=== PATIENT | female | born 1990 | race Caucasian/White ===

== ENCOUNTER 2018-06-19 19:04 | Emergency (ER) | payer OTHER ==
[~2018-06-19] VITALS: Ht 162.6 cm; Wt 45.4 kg
[2018-06-19 19:14] VITALS: BP_SYST 148
[2018-06-19] MEDS: NACL 0.9% 1,000 ML IV ONE ×2 (20:04→21:20)
[2018-06-19 20:24] LABS: COLOR,URINE YELLOW (YELLOW)
[2018-06-19 20:25] LABS: BILIRUBIN,URINE NEGATIVE (NEGATIVE); BLOOD, URINE NEGATIVE (NEGATIVE); CLARITY/URINE SLIGHTLY CLOUDY (CLEAR); GLUCOSE,URINE NEGATIVE (NEGATIVE); KETONES,URINE NEGATIVE (NEGATIVE); LEUKOCYTE ESTERASE ,URINE NEGATIVE (NEGATIVE); NITRITE, URINE NEGATIVE (NEGATIVE); PROTEIN URINE NEGATIVE (NEGATIVE); UROBILINOGEN,URINE 0.2 (0.2-1.0)
[2018-06-19 20:30] LABS: RBC,URINE 0-3 /HPF (0-3)
[2018-06-19 20:31] LABS: BACTERIA,URINE MODERATE /HPF (None Seen); MUCUS,URINE None Seen /LPF (None Seen); WBC,URINE 0-3 /HPF (0-3); YEAST,URINE None Seen /HPF (None Seen)
[2018-06-19 20:36] LABS: BARBITURATE, URINE NEGATIVE (NEG <=200); BENZODIAZEPINE, URINE NEGATIVE (NEG <=150); CANNABINOID, URINE NEGATIVE (NEG <=50); COCAINE, URINE NEGATIVE (NEG <=150); METHAMPHETAMINES SCREEN,URINE NEGATIVE (NEG <=500); OPIATE, URINE POSITIVE (NEG <=100); PHENCYCLIDINE SCREEN,URINE NEGATIVE (NEG <=25); UR TRICYCLIC ANTIDEPRESSANTS NEGATIVE (NEG <=300); URINE AMPHETAMINE NEGATIVE (NEG <=500); URINE METHADONE NEGATIVE (NEG <=200); URINE OXYCODONE SCREEN NEGATIVE (NEG <=100); URINE PROPOXYPHENE SCREEN NEGATIVE (NEG <=300)
[2018-06-19 20:46] LABS: POTASSIUM 3.1 mmol/L (3.5-5.1)
[2018-06-19 20:47] LABS: ALBUMIN 4.4 g/dL (3.4-4.8); CALCIUM 9.4 mg/dL (8.4-11.0); CREATININE 0.7 mg/dL (0.55-1.30); TOTAL BILIRUBIN 1.4 mg/dL (0.0-1.0)
[2018-06-19 20:53] LABS: HEMATOCRIT 39.3 % (36-48); HEMOGLOBIN 13.1 g/dL (12.0-16.0); MEAN CORPUSCULAR HEMOGLOBIN 29 pg (27-31); MEAN CORPUSCULAR HGB CONC 33 % (32-36); MEAN CORPUSCULAR VOLUME 88 fL (79.0-98.0); PLATELET COUNT (AUTO) 204 K/uL (130-430); RED BLOOD CELL COUNT(AUTO) 4.46 MIL/uL (4.2-6.2); RED CELL DISTRIBUTION WIDTH 11.3 % (9.0-15.0); WHITE BLOOD COUNT (AUTO) 8.6 K/uL (4.8-10.8)
[2018-06-19 20:54] LABS: BASOPHILS % (AUTO) 0.3 % (0.0-2.0); EOSINOPHILS % (AUTO) 0.4 % (0.0-4.0); LYMPHOCYTES # (AUTO) 1.2 K/uL (1.0-5.5); MONOCYTES # (AUTO) 0.4 K/uL (0.0-1.0); MONOCYTES % (AUTO) 4.9 % (1.7-9.3); NEUTROPHILS % (AUTO) 80.4 % (40.0-70.0)
[2018-06-19 22:00] VITALS: BP_SYST 113
== END 2018-06-19 22:25 | disposition home or self-care (01) ==
LOC: SED 19:04
DX: R00.2 Palpitations (principal); E86.0 Dehydration; R03.0 Elevated blood-pressure reading, without diagnosis of hypertension
CPT/HCPCS: 36415; 71045; 80053; 80307; 81000; 84443; 85025; 87086; 93005; 96360; 99284; J7030

== ENCOUNTER 2019-06-10 08:51 | Emergency (ER) | payer OTHER ==
[~2019-06-10] VITALS: Ht 162.6 cm; Wt 47.6 kg
[2019-06-10 08:56] VITALS: BP_SYST 128
--- NOTE | 2019-06-10 09:00 | NUR ---
Patient to ER bed 05 to gown for evaluation. Side rails up.
--- NOTE | 2019-06-10 09:02 | NUR ---
Pt brought by family , A&Ox4, pt presents to ER with anxiety, pt taking fluoxetine, skin pink and warm, cap refill <3, VSS, respirations even and unlabored, will cont to monitor.
[2019-06-10] MEDS ORDERED: ALPRAZolam 0.25 MG TABLET PO ONE (09:15)
--- NOTE | 2019-06-10 09:15 | NUR ---
ER at bedside examining patient.
[2019-06-10 09:30] LABS: BASOPHILS % (AUTO) 0.2 % (0.0-2.0); EOSINOPHILS # (AUTO) 0.1 K/uL (0.0-0.4); EOSINOPHILS % (AUTO) 1.6 % (0.0-4.0); LYMPHOCYTES # (AUTO) 1.3 K/uL (1.0-5.5); LYMPHOCYTES % (AUTO) 20.9 % (20.5-51.5); MEAN CORPUSCULAR HEMOGLOBIN 30 pg (27-31); MEAN CORPUSCULAR HGB CONC 34 % (32-36); MEAN CORPUSCULAR VOLUME 88 fL (79.0-98.0); MONOCYTES # (AUTO) 0.4 K/uL (0.0-1.0); MONOCYTES % (AUTO) 6.6 % (1.7-9.3); NEUTROPHILS # (AUTO) 4.4 K/uL (1.8-7.7); NEUTROPHILS % (AUTO) 70.7 % (40.0-70.0); PLATELET COUNT (AUTO) 144 K/uL (130-430); RED BLOOD CELL COUNT(AUTO) 4.32 MIL/uL (4.2-6.2); RED CELL DISTRIBUTION WIDTH 12.7 % (9.0-15.0); WHITE BLOOD COUNT (AUTO) 6.2 K/uL (4.8-10.8)
[2019-06-10 09:54] LABS: CALCIUM 8.9 mg/dL (8.4-11.0); CREATININE 0.6 mg/dL (0.55-1.30); POTASSIUM 4.4 mmol/L (3.5-5.1)
[2019-06-10 10:10] LABS: ALBUMIN 4.4 g/dL (3.4-4.8); FREE T4 (FREE THYROXINE) 1.4 ng/dl (0.8-1.5); THYROID STIMULATING HORMONE 1.88 uIu/mL (0.36-3.74); TOTAL BILIRUBIN 2.2 mg/dL (0.0-1.0)
[2019-06-10 11:10] VITALS: BP_SYST 128
--- NOTE | 2019-06-10 11:10 | NUR ---
Patient given written and verbal discharge instructions and verbalizes understanding. ER MD discussed with patient the results and treatment provided. Patient in stable condition. ID arm band removed. Rx of Xanax given. Patient educated on pain management and to follow up with PMD. Pain Scale 0/10. Opportunity for questions provided and answered. Medication side effect fact sheet provided.
== END 2019-06-10 11:10 | disposition home or self-care (01) ==
LOC: SED 08:51
DX: F41.9 Anxiety disorder, unspecified (principal); R00.2 Palpitations
CPT/HCPCS: 36415; 71045; 80053; 81025; 82550-TC; 84439; 84443-TC; 84484; 85025; 99284

== ENCOUNTER 2022-05-30 09:27 | Emergency (ER) | payer OTHER ==
[~2022-05-30] VITALS: Ht 162.6 cm; Wt 49.9 kg
[2022-05-30 09:59] VITALS: BP_SYST 103
[2022-05-30 11:04] LABS: BASOPHILS % (AUTO) 0.6 % (0.0-2.0); EOSINOPHILS # (AUTO) 0.1 K/uL (0.0-0.4); EOSINOPHILS % (AUTO) 2.3 % (0.0-4.0); HEMATOCRIT 36.2 % (36-48); LYMPHOCYTES # (AUTO) 1.2 K/uL (1.0-5.5); MEAN CORPUSCULAR HEMOGLOBIN 30 pg (27-31); MEAN CORPUSCULAR HGB CONC 33 % (32-36); MEAN CORPUSCULAR VOLUME 89 fL (79.0-98.0); MONOCYTES # (AUTO) 0.3 K/uL (0.0-1.0); MONOCYTES % (AUTO) 7.6 % (1.7-9.3); NEUTROPHILS % (AUTO) 56.5 % (40.0-70.0); PLATELET COUNT (AUTO) 170 K/uL (130-430); RED BLOOD CELL COUNT(AUTO) 4.07 MIL/uL (4.2-6.2)
[2022-05-30 11:17] LABS: WHITE BLOOD COUNT (AUTO) 3.6 K/uL (4.8-10.8)
[2022-05-30 11:27] LABS: INR 1.1 (0.8-1.2); PROTHROMBIN TIME 11.7 SECS (9.5-12.5)
[2022-05-30 13:29] LABS: BILIRUBIN,URINE NEGATIVE (NEGATIVE); BLOOD, URINE 2+ (NEGATIVE); COLOR,URINE YELLOW (YELLOW); GLUCOSE,URINE NEGATIVE (NEGATIVE); KETONES,URINE NEGATIVE (NEGATIVE); LEUKOCYTE ESTERASE ,URINE NEGATIVE (NEGATIVE); NITRITE, URINE NEGATIVE (NEGATIVE); PH,URINE 7.5 (5.0-8.0); PROTEIN URINE NEGATIVE (NEGATIVE); UROBILINOGEN,URINE 0.2 (0.2-1.0)
[2022-05-30 13:30] LABS: CLARITY/URINE HAZY (CLEAR)
[2022-05-30 13:39] LABS: BACTERIA,URINE FEW /HPF (None Seen); MUCUS,URINE 1+ /LPF (None Seen); WBC,URINE 0-3 /HPF (0-3)
[2022-05-30 16:30] VITALS: BP_SYST 103
--- NOTE | 2022-05-30 16:30 | NUR ---
PT SEEN BY DR EAGLE IN TRIAGE [facility]
--- NOTE | 2022-05-30 16:37 | NUR ---
Patient given written and verbal discharge instructions BY DR EAGLE and verbalizes understanding. ER MD discussed with patient the results and treatment provided. Patient in stable condition. ID arm band removed. Patient educated on pain management and to follow up with PMD. Pain Scale . Opportunity for questions provided and answered. Medication side effect fact sheet provided.
== END 2022-05-30 16:37 | disposition home or self-care (01) ==
LOC: SED 09:27
DX: O03.9 Complete or unspecified spontaneous abortion without complication (principal)
CPT/HCPCS: 36415; 76801; 81000; 81025; 84702; 85025; 85610-TC; 85730-TC; 86900; 86901; 99284

== ENCOUNTER 2022-06-12 07:30 | Emergency (ER) | payer OTHER ==
[~2022-06-12] VITALS: Ht 162.6 cm; Wt 49.9 kg
[2022-06-12 07:32] VITALS: BP_SYST 118
--- NOTE | 2022-06-12 07:39 | NUR ---
Placed in room 06 . Placed on teletypesetter monitor, blood pressure machine and pulse oximeter. To gown for exam. Side rails up. Report given to NONA LI.
--- NOTE | 2022-06-12 07:41 | NUR ---
PT STATES SHE IS PRETTY SURE SHE HAD A MISCARRIAGE, TOLD TO COME BACK FOR LAB TESTING. STATES HER PREVIOUS HCG LEVEL WAS 3686, DR CAMERON TOLD HER TO COME BACK TO SEE IF IT DROPPED. PT STATES BLEEDING HAS COMPLETELY STOPPED, DENIES CRAMPING.
--- NOTE | 2022-06-12 07:42 | NUR ---
DR MOORE AT BEDSIDE FOR EVALUATION OF PT
--- NOTE | 2022-06-12 07:55 | NUR ---
LAB DRAWN BY [facility], AWAITING RESULTS
--- NOTE | 2022-06-12 09:05 | NUR ---
TAKEN TO RADIOLOGY FOR ULTRASOUND
--- NOTE | 2022-06-12 10:16 | NUR ---
AWAITING TEST RESULTS, PT GIVEN PUDDING AND JELLO REQUESTED.
--- NOTE | 2022-06-12 10:50 | NUR ---
Patient given written and verbal discharge instructions and verbalizes understanding. ER MD discussed with patient the results and treatment provided. Patient in stable condition. ID arm band removed. IV catheter removed intact and dressing applied, no active bleeding. Patient educated on ECTOPIC and to follow up with MD SHORT. Opportunity for questions provided and answered. Medication side effect fact sheet provided.
[2022-06-12 10:51] VITALS: BP_SYST 118
== END 2022-06-12 10:50 | disposition home or self-care (01) ==
LOC: SED 07:30
DX: O00.90 Unspecified ectopic pregnancy without intrauterine pregnancy (principal); Z3A.01 Less than 8 weeks gestation of pregnancy
CPT/HCPCS: 36415; 76801; 76817; 84702; 99284

== ENCOUNTER 2022-06-13 12:00 | Emergency (ER) | payer OTHER ==
[~2022-06-13] VITALS: Ht 162.6 cm; Wt 49.9 kg
[2022-06-13 12:00] VITALS: BP_SYST 108
--- NOTE | 2022-06-13 12:00 | NUR ---
Patient triaged and placed in waiting room. VSS and patient appears in no acute distress at this time. Accompanied by SELF, awaiting available bed, and MD notified of need for MSE.
--- NOTE | 2022-06-13 14:34 | NUR ---
ER DR. CAMERON EXAMINING PT IN TRIAGE
[2022-06-13] MEDS ORDERED: metHOTREXATe PF 50 MG/2 ML VIAL (25 MG/ML) IM ONE (14:45)
[2022-06-13 15:25] LABS: CREATININE 0.6 mg/dL (0.55-1.30)
[2022-06-13 15:27] LABS: BASOPHILS % (AUTO) 0.4 % (0.0-2.0); EOSINOPHILS # (AUTO) 0.1 K/uL (0.0-0.4); EOSINOPHILS % (AUTO) 2.7 % (0.0-4.0); HEMATOCRIT 36.5 % (36-48); HEMOGLOBIN 12.1 g/dL (12.0-16.0); LYMPHOCYTES # (AUTO) 1.6 K/uL (1.0-5.5); LYMPHOCYTES % (AUTO) 29.7 % (20.5-51.5); MEAN CORPUSCULAR HEMOGLOBIN 30 pg (27-31); MEAN CORPUSCULAR HGB CONC 33 % (32-36); MEAN CORPUSCULAR VOLUME 89 fL (79.0-98.0); MONOCYTES # (AUTO) 0.3 K/uL (0.0-1.0); MONOCYTES % (AUTO) 5.6 % (1.7-9.3); NEUTROPHILS # (AUTO) 3.2 K/uL (1.8-7.7); NEUTROPHILS % (AUTO) 61.6 % (40.0-70.0); PLATELET COUNT (AUTO) 190 K/uL (130-430); RED BLOOD CELL COUNT(AUTO) 4.09 MIL/uL (4.2-6.2); RED CELL DISTRIBUTION WIDTH 12.6 % (9.0-15.0); WHITE BLOOD COUNT (AUTO) 5.2 K/uL (4.8-10.8)
[2022-06-13 15:31] LABS: ALBUMIN 4.2 g/dL (3.4-4.8); TOTAL BILIRUBIN 1.6 mg/dL (0.0-1.0)
[2022-06-13 15:52] VITALS: BP_SYST 122
--- NOTE | 2022-06-13 15:52 | NUR ---
Patient given written and verbal discharge instructions and verbalizes understanding. ER MD discussed with patient the results and treatment provided. Patient in stable condition. ID arm band removed. NO Rx given. Patient educated on pain management and to follow up with PMD. Pain Scale 0/10. Opportunity for questions provided and answered. Medication side effect fact sheet provided.
== END 2022-06-13 15:52 | disposition home or self-care (01) ==
LOC: SED 12:00
DX: R10.9 Unspecified abdominal pain (principal); Z79.899 Other long term (current) drug therapy
CPT/HCPCS: 99283; 80053; 85025; 36415; 96372; J9260

== ENCOUNTER 2022-06-17 18:56 | Emergency (ER) | payer OTHER ==
[~2022-06-17] VITALS: Ht 162.6 cm; Wt 49.9 kg
[2022-06-17 19:33] VITALS: BP_SYST 102
--- NOTE | 2022-06-17 19:40 | NUR ---
Patient triaged and placed in waiting room. VSS and patient appears in no acute distress at this time. Accompanied by self, awaiting available bed, and MD Ang notified of need for MSE.
--- NOTE | 2022-06-17 19:40 | NUR ---
UA cup provided; pending urine sample collection.
--- NOTE | 2022-06-17 19:50 | NUR ---
ER Dr. Ang examining patient.
[2022-06-17 20:21] LABS: BASOPHILS % (AUTO) 0.6 % (0.0-2.0); EOSINOPHILS # (AUTO) 0.2 K/uL (0.0-0.4); EOSINOPHILS % (AUTO) 3.5 % (0.0-4.0); HEMATOCRIT 37.2 % (36-48); HEMOGLOBIN 12.4 g/dL (12.0-16.0); LYMPHOCYTES # (AUTO) 1.8 K/uL (1.0-5.5); LYMPHOCYTES % (AUTO) 32.9 % (20.5-51.5); MEAN CORPUSCULAR HEMOGLOBIN 30 pg (27-31); MEAN CORPUSCULAR HGB CONC 33 % (32-36); MEAN CORPUSCULAR VOLUME 89 fL (79.0-98.0); MONOCYTES # (AUTO) 0.3 K/uL (0.0-1.0); MONOCYTES % (AUTO) 5.3 % (1.7-9.3); NEUTROPHILS # (AUTO) 3.2 K/uL (1.8-7.7); NEUTROPHILS % (AUTO) 57.7 % (40.0-70.0); PLATELET COUNT (AUTO) 191 K/uL (130-430); RED BLOOD CELL COUNT(AUTO) 4.19 MIL/uL (4.2-6.2); RED CELL DISTRIBUTION WIDTH 12.4 % (9.0-15.0); WHITE BLOOD COUNT (AUTO) 5.6 K/uL (4.8-10.8)
[2022-06-17 21:34] LABS: INR 1.1 (0.8-1.2); PROTHROMBIN TIME 11.5 SECS (9.5-12.5)
--- NOTE | 2022-06-17 21:42 | NUR ---
Patient given written and verbal discharge instructions and verbalizes understanding. ER MD Ang discussed with patient the results and treatment provided. Patient in stable condition. ID arm band removed. Patient educated on pain management and to follow up with PMD. Opportunity for questions provided and answered.
[2022-06-17 21:43] VITALS: BP_SYST 110
== END 2022-06-17 21:43 | disposition home or self-care (01) ==
LOC: SED 18:56
DX: O00.90 Unspecified ectopic pregnancy without intrauterine pregnancy (principal); O26.891 Other specified pregnancy related conditions, first trimester; Z3A.01 Less than 8 weeks gestation of pregnancy
CPT/HCPCS: 36415; 76802; 84702; 85025; 85610-TC; 85730-TC; 99284

== ENCOUNTER 2023-11-11 05:53 | Emergency (ER) | payer OTHER ==
[~2023-11-11] VITALS: Ht 162.6 cm; Wt 49.9 kg
[2023-11-11 06:03] VITALS: BP_SYST 123; PULSE 84; RESP 18; TEMP 98; O2SAT 98
[2023-11-11 06:25] LABS: BILIRUBIN,URINE NEGATIVE (NEGATIVE); BLOOD, URINE 1+ (NEGATIVE); CLARITY/URINE CLOUDY (CLEAR); COLOR,URINE YELLOW (YELLOW); GLUCOSE,URINE NEGATIVE (NEGATIVE); KETONES,URINE NEGATIVE (NEGATIVE); LEUKOCYTE ESTERASE ,URINE 2+ (NEGATIVE); NITRITE, URINE NEGATIVE (NEGATIVE); PROTEIN URINE 1+ (NEGATIVE); UROBILINOGEN,URINE 0.2 (0.2-1.0)
[2023-11-11 06:38] LABS: BACTERIA,URINE MODERATE /HPF (None Seen); WBC,URINE >100 /HPF (0-3)
[2023-11-11] MEDS ORDERED: CEPH-548 PO (06:47)
[2023-11-11 06:58] VITALS: BP_SYST 101; PULSE 90; RESP 18; TEMP 98; O2SAT 100
== END 2023-11-11 06:55 | disposition home or self-care (01) ==
LOC: SED 05:53
DX: N30.90 Cystitis, unspecified without hematuria (principal); R35.0 Frequency of micturition
CPT/HCPCS: 81000; 81001; 81015; 81025; 87086; 87186; 99283